=== PATIENT | male | born 2000 | race Hispanic/Latino ===

== ENCOUNTER 2023-11-30 16:36 | Emergency (ER) | payer OTHER ==
[~2023-11-30] VITALS: Ht 177.8 cm; Wt 87.5 kg
[2023-11-30 19:33] VITALS: BP 131/75; PULSE 85; RESP 17; O2SAT 97
== END 2023-11-30 19:34 | disposition home or self-care (01) ==
LOC: EDH 16:36
DX: S51.812A Laceration without foreign body of left forearm, initial encounter (principal); X50.0XXA Overexertion from strenuous movement or load, initial encounter; Y93.89 Activity, other specified; Y92.89 Other specified places as the place of occurrence of the external cause; Y99.8 Other external cause status
CPT/HCPCS: 12001; 99282

== ENCOUNTER 2023-12-07 15:43 | Emergency (ER) | payer OTHER ==
[~2023-12-07] VITALS: Ht 177.8 cm; Wt 87.1 kg
[2023-12-07 16:47] VITALS: BP 148/77; PULSE 65; RESP 20; O2SAT 99
== END 2023-12-07 16:58 | disposition home or self-care (01) ==
LOC: EDH 15:43
DX: S51.812D Laceration without foreign body of left forearm, subsequent encounter (principal); Z48.02 Encounter for removal of sutures; X58.XXXD Exposure to other specified factors, subsequent encounter
CPT/HCPCS: 99281